=== PATIENT | female | born 1960 | race Caucasian/White ===

== ENCOUNTER 2017-01-07 13:16 | Emergency (ER) | payer MEDICARE, MEDICAID ==
[~2017-01-07] VITALS: Ht 165.1 cm; Wt 67.0 kg
[~2017-01-07 13:16] MED LIST: ALLOPURINOL300 MG PO; ASPIRIN 81 LOW81 MG PO; CARVEDILOL6.25 MG PO; COREG6.25 MG PO; FLEXERIL5 MG PO; IBUPROFEN600 MG PO; KLOR-CON M1010 MEQ PO; LASIX 40 MG40 MG/TAB PO; LASIX 80 MG TAB80 M1 PO; LASIX40 MG PO; LISINOPRIL10 MG PO; LISINOPRIL5 MG PO; METRONIDAZOL500 MG PO; PREDNISONE20 MG PO; SPIRONOLACTONE25 MG PO; ULTRAM50 M1 PO; VENTOLIN HFA IN
[2017-01-07 13:49] LABS: HEMATOCRIT 38.5 % (37.0-47.0); HEMOGLOBIN 12.2 g/dl (12.0-16.0); IMMATURE GRANULOCYTES 0.3 % (0.0-1.0); MEAN CELL VOLUME 63.5 fL CALC (80.0-100.0); MEAN CORPUSCULAR HGB 20.1 pG CALC (26.0-32.0); MEAN CORPUSCULAR HGB CONC 31.7 g/L CALC (32.0-36.0); NEUT# 15.54 thou/uL (2.00-7.15); RED BLOOD COUNT 6.06 mill/uL (4.20-5.60); RED CELL DISTRI WIDTH 15.3 % (11.5-15.5)
[2017-01-07 14:12] LABS: ALBUMIN 4.6 g/dL (3.2-5.0); ALKALINE PHOSPHATASE 91 u/l (38-126); ANION GAP 19 (6-22 (CALC)); BUN 22 mg/dL (7-17); BUN/CREATININE RATIO 24 (12-20 (CALC)); CALCIUM 9.5 mg/dL (8.4-10.2); CARBON DIOXIDE 27 mmol/l (22-30); CHLORIDE 98 mmol/l (95-108); CREATININE 0.9 mg/dL (0.5-1.0); GFR > 60 ML/MIN (>=60 (CALC)); GFR FOR AFR.AMER. > 60 ML/MIN (>=60 (CALC)); GLUCOSE 147 mg/dL (65-105); POTASSIUM 2.8 mmol/l (3.5-5.1); SGOT/AST 45 u/l (14-36); SGPT/ALT 36 u/l (9-52); SODIUM 141 mmol/l (137-146); TOTAL PROTEIN 8.8 g/dL (6.3-8.2)
[2017-01-07 14:23] LABS: MYOGLOBIN 76 ng/mL (0 - 62)
[2017-01-07 14:58] LABS: URINE BILIRUBIN - DIPSTICK NEGATIVE (NEGATIVE); URINE BLOOD DIPSTICK NEGATIVE (NEGATIVE); URINE CLARITY CLEAR; URINE COLOR YELLOW; URINE GLUCOSE - DIPSTICK NEGATIVE (NEGATIVE); URINE KETONE NEGATIVE (NEGATIVE); URINE LEUK ESTERASE NEGATIVE (NEGATIVE); URINE NITRITE - DIPSTICK NEGATIVE (Negative); URINE PH 5.5 (4.5-8.0); URINE PROTEIN - DIPSTICK NEGATIVE (NEG-TRACE); URINE SPECIFIC GRAVITY 1.025; URINE UROBILINOGEN - DIPSTICK 0.2 E.U./dL (0.2)
[2017-01-07 15:02] LABS: COCAINE NEGATIVE (NEGATIVE)
[2017-01-07 15:03] LABS: BARBITURATES NEGATIVE (NEGATIVE); METHADONE NEGATIVE (NEGATIVE); OXCYCODONE NEGATIVE (NEGATIVE); TETRAHYDROCANNABIONOL NEGATIVE (NEGATIVE); TRICYLIC ANTIDEPRESSANTS NEGATIVE (NEGATIVE)
[2017-01-07 17:53] LABS: MYOGLOBIN 69 ng/mL (0 - 62)
[2017-01-07 18:16] VITALS: BP 108/63
== END 2017-01-07 18:41 | disposition home or self-care (01) ==
LOC: ED 13:16
PROVIDERS: Emergency Medicine
DX: R07.89 Other chest pain (principal); E87.6 Hypokalemia; T43.621A Poisoning by amphetamines, accidental (unintentional), initial encounter; Y92.89 Other specified places as the place of occurrence of the external cause

== ENCOUNTER 2017-07-15 13:12 | Emergency (ER) | payer MEDICARE, MEDICAID ==
[~2017-07-15] VITALS: Ht 165.1 cm; Wt 65.2 kg
[2017-07-15 15:26] LABS: INFLUENZA A NONE DETECTED (NONE DETECT); INFLUENZA B NONE DETECTED (NONE DETECT)
[2017-07-15 18:30] LABS: ALBUMIN 4.4 g/dL (3.2-5.0); BILIRUBIN, TOTAL 2.9 mg/dL (0.0-1.4); CALCIUM 9.5 mg/dL (8.4-10.2); CREATININE 1.3 mg/dL (0.5-1.0); POTASSIUM 3.4 mmol/l (3.5-5.1); TOTAL PROTEIN 7.5 g/dL (6.3-8.2)
[2017-07-15 18:37] LABS: HEMATOCRIT 35.3 % (37.0-47.0); IMMATURE GRANULOCYTES 0.3 % (0.0-1.0); MEAN CORPUSCULAR HGB 20.9 pG CALC (26.0-32.0); MEAN CORPUSCULAR HGB CONC 31.2 g/L CALC (32.0-36.0); NEUT# 6.42 thou/uL (2.00-7.15); RED BLOOD COUNT 5.27 mill/uL (4.20-5.60); RED CELL DISTRI WIDTH 18.6 % (11.5-15.5)
[2017-07-15] MEDS ORDERED: SPIRONO/HCTZ PO (20:58)
[2017-07-15] MEDS ORDERED: LASIX 40 MG TAB40 MG PO (20:58)
[2017-07-15 21:08] VITALS: BP 122/73
== END 2017-07-15 21:08 | disposition home or self-care (01) ==
LOC: ED 13:12
PROVIDERS: Emergency Medicine; Family Medicine
DX: I11.0 Hypertensive heart disease with heart failure (principal); I50.9 Heart failure, unspecified; I42.9 Cardiomyopathy, unspecified; Z95.810 Presence of automatic (implantable) cardiac defibrillator; R06.02 Shortness of breath

== ENCOUNTER 2017-07-16 22:50 | Inpatient (IN) | payer MEDICARE, MEDICAID ==
[~2017-07-16] VITALS: Ht 165.1 cm; Wt 63.8 kg
[~2017-07-16 22:50] MED LIST changes: +LASIX 40 MG TAB40 MG PO; +SPIRONO/HCTZ PO
--- NOTE | 2017-07-16 23:10 | NUR ---
PT TO RM 13 VIA WHEELCHAIR.
--- NOTE | 2017-07-16 23:12 | NUR ---
A/O F WHO RETURNS TO ER C/O SOB AND FLUID RETENTION.SHE DENIES CP HAS BEEN VOIDING AND TAKING MEDICATIONS ORDERED.W/P/D SKIN CLEAR BILAT BREATH SOUNDS,OCC DRY SUBSCRIPTION AGENT COUGH.NO DEPENDENT EDEMA
[2017-07-17 00:06] LABS: HEMATOCRIT 36.5 % (37.0-47.0); HEMOGLOBIN 11.5 g/dl (12.0-16.0); IMMATURE GRANULOCYTES 0.5 % (0.0-1.0); MEAN CELL VOLUME 66.8 fL CALC (80.0-100.0); MEAN CORPUSCULAR HGB 21.1 pG CALC (26.0-32.0); MEAN CORPUSCULAR HGB CONC 31.5 g/L CALC (32.0-36.0); NEUT# 6.17 thou/uL (2.00-7.15); RED BLOOD COUNT 5.46 mill/uL (4.20-5.60); RED CELL DISTRI WIDTH 18.6 % (11.5-15.5)
[2017-07-17 00:16] LABS: ALBUMIN 4.7 g/dL (3.2-5.0); ALKALINE PHOSPHATASE 91 u/l (38-126); ANION GAP 23 (6-22 (CALC)); BILIRUBIN, TOTAL 3.5 mg/dL (0.0-1.4); BUN 23 mg/dL (7-17); BUN/CREATININE RATIO 21 (12-20 (CALC)); CALCIUM 9.6 mg/dL (8.4-10.2); CARBON DIOXIDE 24 mmol/l (22-30); CHLORIDE 99 mmol/l (95-108); CREATININE 1.1 mg/dL (0.5-1.0); GFR 51 ML/MIN (>=60 (CALC)); GFR FOR AFR.AMER. > 60 ML/MIN (>=60 (CALC)); GLUCOSE 178 mg/dL (65-105); POTASSIUM 2.9 mmol/l (3.5-5.1); SGOT/AST 45 u/l (14-36); SGPT/ALT 45 u/l (9-52); SODIUM 142 mmol/l (137-146); TOTAL PROTEIN 7.8 g/dL (6.3-8.2)
[2017-07-17 00:17] LABS: INTERNATIONAL NORMALIZED RATIO 1.1 RATIO (0.7-1.3); PROTHROMBIN TIME 12.3 SECONDS (9.0-12.5)
[2017-07-17 00:28] LABS: MYOGLOBIN 114 ng/mL (0 - 62)
--- NOTE | 2017-07-17 00:40 | NUR ---
PT UP TO BSC TO VOID 200 CC YELLOW URINE SPEC TO LAB
[2017-07-17 00:58] LABS: URINE BILIRUBIN - DIPSTICK NEGATIVE (NEGATIVE); URINE BLOOD DIPSTICK NEGATIVE (NEGATIVE); URINE COLOR YELLOW; URINE GLUCOSE - DIPSTICK NEGATIVE (NEGATIVE); URINE KETONE NEGATIVE (NEGATIVE); URINE LEUK ESTERASE NEGATIVE (NEGATIVE); URINE NITRITE - DIPSTICK NEGATIVE (Negative); URINE PH 6.5 (4.5-8.0); URINE PROTEIN - DIPSTICK NEGATIVE (NEG-TRACE); URINE UROBILINOGEN - DIPSTICK 0.2 E.U./dL (0.2)
[2017-07-17 01:06] LABS: URINE CLARITY CLEAR
--- NOTE | 2017-07-17 02:36 | NUR ---
PT IS FEELING BETTER NOW SHE SAYS
--- NOTE | 2017-07-17 03:26 | NUR ---
PHONE REPORT TO CAPRICE CONNELL
--- NOTE | 2017-07-17 03:31 | NUR ---
TO FLOOR IN IMPROVED STABLE CONDITION ON TELE
--- NOTE | 2017-07-17 03:36 | NUR ---
PATIENT ARRIVED TO THE FLOOR IN STABLE CONDITION VIA STRETCHER AND ACCOMPANIED BY ED STAFF. PATIENT SETTLED TO BED. ORIENT PATIENT TO ROOM CALL SYSTEM. DENIES PAIN. PT STATED "I AM FEELING MUCH BETTER SINCE THEY GAVE ME THE LASIX DOWNSTAIRS" BED IN LOW POSITION AND CALL LIGHT IN REACH.
--- NOTE | 2017-07-17 07:00 | NUR ---
RECEIVED BEDSIDE REPORT FROM CAPRICE CONNELL. RETURNED FROM RADIOLOGY VIA WHEELCHAIR. AMBULATED TO BED WITH STEADY GAIT. RESPS EVEN AND UNLABORED ON ROOM AIR, TELE MONITOR IN PLACE. DENIES PAIN OR DISCOMFORT. CALL LIGHT WITHIN REACH. PLAN OF CARE DISCUSSED. SAFETY PRECAUTIONS REINFORCED. BED IN LOWEST POSITION WITH WHEELS LOCKED. ENCOURAGED PT TO CALL FOR ANY NEEDS.
[2017-07-17 07:33] VITALS: BP 114/78
[2017-07-17 08:03] LABS: CHOLESTEROL HDL RATIO 3.8 (<4.4 (CALC))
--- NOTE | 2017-07-17 08:58 | NUR ---
DR KHAN IN WITH PT, NEW ORDERS RECEIVED.
[2017-07-17 11:16] VITALS: BP 100/71
[2017-07-17 15:11] VITALS: BP 92/51
--- NOTE | 2017-07-17 16:34 | NUR ---
RESTING IN LEFT FOWLERS WITH EYES CLOSED, AWAKENS EASILY. RESPS EVEN AND UNLABORED ON ROOM AIR, TELE MONITOR IN PLACE. DENIES PAIN OR DISCOMFORT. CALL LIGHT WITHIN REACH. WILL CONTINUE TO MONITOR.
--- NOTE | 2017-07-17 19:00 | NUR ---
RECEIVED CHANGE OF SHIFT REPORT FROM KO IBRAHIM. PATIENT SITTING UP IN BED AND APPEARS NOT TO BE IN ANY APPARENT ACUTE DISTRESS. C/O STILL BEING A LITTLE SOB. LUNG SOUNDS CLEAR IN ALL MEYER, O2 SAT 99% ON RA.
[2017-07-17 19:20] VITALS: BP 96/66
[2017-07-17 23:05] VITALS: BP 103/76
--- NOTE | 2017-07-18 01:20 | NUR ---
PATIENT UP AT BEDSIDE MAKING HER BED. C/O BEING DIZZY. ENCOURAGED PATIENT TO REMAIN IN BED AND CALL FOR ASSISTANCE. PATIENT STATES SHE IS ANXIOUS ABOUT HER SON IN THE [employer]. PT BP IS 102/76 IN LEFT ARM SUPINE POSITION.
--- NOTE | 2017-07-18 04:00 | NUR ---
NO APPARENT ACUTE CHANGES NOTED IN PATIENT'S CONDITION.
[2017-07-18 04:22] VITALS: BP 92/71
[2017-07-18 06:07] LABS: HEMATOCRIT 37.2 % (37.0-47.0); HEMOGLOBIN 11.7 g/dl (12.0-16.0); IMMATURE GRANULOCYTES 0.6 % (0.0-1.0); MEAN CELL VOLUME 66.9 fL CALC (80.0-100.0); MEAN CORPUSCULAR HGB CONC 31.5 g/L CALC (32.0-36.0); NEUT# 4.84 thou/uL (2.00-7.15); RED BLOOD COUNT 5.56 mill/uL (4.20-5.60); RED CELL DISTRI WIDTH 18.7 % (11.5-15.5)
[2017-07-18 06:22] LABS: ALBUMIN 4.4 g/dL (3.2-5.0); CALCIUM 9.5 mg/dL (8.4-10.2); CREATININE 1.3 mg/dL (0.5-1.0); POTASSIUM 3.8 mmol/l (3.5-5.1); TOTAL PROTEIN 7.4 g/dL (6.3-8.2)
--- NOTE | 2017-07-18 07:00 | NUR ---
REPORT RECIEVED FROM KO VASQUES. PT ASLEEP ON ENTRY, NO SIGNS OF DISTRESS NOTED. RESP EVEN AND UNLABORED. SAFETY PRECAUTIONS IN PLACE. CALL LIGHT WITHIN REACH. WILL CONTINUE TO MONITOR.
[2017-07-18 08:28] VITALS: BP 94/62
--- NOTE | 2017-07-18 08:35 | NUR ---
IN ROOM. PLAN OF CARE UPDATED. DR KHAN WANTS PT ON O2 2LNC. PT IS TO BE WALKED WITH WALKER. WILL CONTINUE TO MONITOR PT FOR ANY SHORTNESS OF BREATH AND O2 SAT.
[2017-07-18 11:18] VITALS: BP 117/79
[2017-07-18 15:18] VITALS: BP 110/81
--- NOTE | 2017-07-18 16:36 | NUR ---
PT APPEARS TO BE SLEEPING. NO SIGN OF DISTRESS NOTED. RESP EVEN AND UNLABORED. TELE IN PLACE. BED IN LOWEST POSITION. WILL CONTINUE TO MONITOR. CALL LIGHT WITHIN REACH.
--- NOTE | 2017-07-18 17:45 | NUR ---
DR. KHAN IN ROOM. UPDATED PLAN OF CARE. PT HAS A EJECTION FRACTION OF 19%. A NEW PACEMAKER WAS DISCUSSED WITH PT.
[2017-07-18 18:30] VITALS: BP 132/84
--- NOTE | 2017-07-18 20:00 | NUR ---
PATIENT AWAKE ALERT AND ORIENTEDX3 AT THIS TIME. PATIENT IS ANXIOUS REGUARDING DISCUSSION WITH DR. ERIN HUGHES AND THE RESULTS OF HER ECHO AND EJ RESULTS. REASSURANCE GIVEN AND PATIENT MEDICATED WITH XANAX 0.5MG FOR ANXIETY. PATIENT WITH HEP LOCK TO RIGHT FOREARM IS LEAKING AND SITE WAS DC'ED WITH CATH INTACT. NEW IV SITE STARTED TO LEFT FOREARM WITH #24 WITH GOOD BLOOD RETURN. SAFETY PRECAUTIONS REVIEWED WITH PATIENT. CALL LIGHT IN REACH. WILL CONT TO MONITOR.
[2017-07-18 23:45] VITALS: BP 108/81
--- NOTE | 2017-07-19 | NUR ---
PATIENT SITTING UP IN THE CHAIR WITH O2 OFF-STATES THAT SHE IS HAVING PANIC ATTACK. REASSURANCE GIVEN AND O2 REAPPLIED. ASSISTED PATIENT BACK TO BED-STATES THAT SHE WAS HAVING NIGHTMARE WHEN SHE WOKE UP AND WAS DISORIENTED. TOO EARLY FOR XANAX. MEDICATED WITH RESTORIL 15MG PO ORDERED FOR SLEEP. CALL LIGHT IN REACH. WILL CONT TO MONITOR.
[2017-07-19 03:15] VITALS: BP 100/79
[2017-07-19 05:24] LABS: HEMATOCRIT 38.5 % (37.0-47.0); IMMATURE GRANULOCYTES 0.5 % (0.0-1.0); MEAN CELL VOLUME 67.7 fL CALC (80.0-100.0); MEAN CORPUSCULAR HGB 21.1 pG CALC (26.0-32.0); MEAN CORPUSCULAR HGB CONC 31.2 g/L CALC (32.0-36.0); NEUT# 6.56 thou/uL (2.00-7.15); RED BLOOD COUNT 5.69 mill/uL (4.20-5.60)
[2017-07-19 05:38] LABS: ANION GAP 18 (6-22 (CALC)); BUN 31 mg/dL (7-17); BUN/CREATININE RATIO 30 (12-20 (CALC)); CALCIUM 9.6 mg/dL (8.4-10.2); CARBON DIOXIDE 26 mmol/l (22-30); CHLORIDE 101 mmol/l (95-108); GFR 57 ML/MIN (>=60 (CALC)); GFR FOR AFR.AMER. > 60 ML/MIN (>=60 (CALC)); GLUCOSE 140 mg/dL (65-105); POTASSIUM 4.5 mmol/l (3.5-5.1); SODIUM 141 mmol/l (137-146)
--- NOTE | 2017-07-19 05:59 | NUR ---
PATIENT SITTING UP IN THE BED AT THIS TIME EXTREMELY ANXIOUS-STATES THAT SHE DOESN'T KNOW WHAT IS WRONG WITH HER-MAYBE I NEED TO GO TO PSYCH FACILITY. REASSURANCE GIVEN AND PATIENT ALLOWED TO VENT. MEDICATED WITH XANAX 0.5MG PO FOR ANXIETY. CALL LIGHT IN REACH. WILL CONT TO MONITOR.
[2017-07-19 07:10] VITALS: BP 115/79
--- NOTE | 2017-07-19 07:10 | NUR ---
BEDSIDE REPORT RECEIVED FROM NIGHT NURSE, PIGSKIN TRIMMER IS JUST LEAVING ROOM, PT.IS UPRIGHT IN BED W/EYES CLOSED, NOT APPEARING TO BE AWAKE. NO S/S OF DISTRESS AT THIS TIME.
--- NOTE | 2017-07-19 08:04 | NUR ---
PT.CALLED TO ASK WHEN THE DOCTOR WOULD BE GETTING HERE TO SEE HER. I GO DOWN TO PT.'S ROOM TO TALK WITH HER AND SEE IF I CAN ASSIST HER. UPON ENTERING ROOM, SHE IS IN RECLINER, CRYING AND PROCEEDS TO TELL ME SHE IS HAVING A PANAC ATTACK AND DOESN'T KNOW WHAT TO DO. SHE WAS MEDICATED WITH XANAX @0532, SHE REPORTS THAT IT DID NOT HELP. SHE STATED THAT SHE KEEPS WAKING UP FEELING PANICKED. I TRY TO TALK PT.THROUGH IT, ENCOURAGED PACED BREATHING AND POSITIVE THINKING. PT.SEEMED TO CALM AND RELAX SOMEWHAT WHEN I'M IN THE ROOM, BUT UPON LEAVING THE ROOM SHE SCREAMS OUT AND CRIES.
[2017-07-19 08:16] VITALS: BP 115/79
[2017-07-19] MEDS ORDERED: IBUPROFEN600 MG PO (08:21)
[2017-07-19] MEDS ORDERED: LISINOPRIL10 MG PO (08:21)
[2017-07-19] MEDS ORDERED: FLEXERIL5 MG PO (08:21)
--- NOTE | 2017-07-19 08:27 | NUR ---
ENTERED ROOM TO ADMINISTER MEDICATIONS AND PT.IS SITTING ON SIDE OF BED, EXTREMELY ANXIOUS, TALKING TO SISTER ON THE PHONE BEGGING HER TO "PLEASE COME." UPON HANGING UP THE PHONE I BEGIN TO TRY AND ASSESS PT., SHE DENIES ANY PAIN OR DISCOMFORT, JUST STATES "I FEEL PANICKED." HER BREATHING IS FAST PACED, I INSTRUCT PT.TO SLOW HER BREATHING SHE STATES, "I CAN'T." I CONTINUE TO WORK WITH PT. WITH DEEP SLOW BREATHING. PT.IS UP WALKING AROUND THE ROOM, PT.REFUSES TO PUT SOCKS ON FOR SAFETY MEASURES.
--- NOTE | 2017-07-19 10:20 | NUR ---
ENTERED ROOM, ARRIVED AND IS AT BEDSIDE. PT.APPEARED CALM AT THIS TIME. NO S/S OF ANXIETY OR DISTRESS. REVIEWED DISCHARGE INSTRUCTIONS WITH PT. AND AND ASSISTED THEM IN GATHERING PERSONAL ITEMS.
--- NOTE | 2017-07-19 10:34 | NUR ---
PT.DISCHARGED OFF THE UNIT FLOOR IN GOOD CONDITION VIA WC ACCOMPANIED BY . NO SIGNS OF ANXIETY OR PAIN UPON DISCHARGE.
== END 2017-07-19 10:25 | disposition home or self-care (01) | DRG 293 ==
LOC: ED 22:50 → ED-I 07-17 02:40 → ED 07-17 03:16 → MS2 07-17 03:17
PROVIDERS: Emergency Medicine; ADMIT Internal Medicine Geriatric Medicine; ATTEND Internal Medicine Geriatric Medicine
DX: I11.0 Hypertensive heart disease with heart failure (principal); I42.8 Other cardiomyopathies; I50.23 Acute on chronic systolic (congestive) heart failure; I50.84 End stage heart failure; I48.91 Unspecified atrial fibrillation; F41.9 Anxiety disorder, unspecified; R53.81 Other malaise; M16.11 Unilateral primary osteoarthritis, right hip; Z95.810 Presence of automatic (implantable) cardiac defibrillator

== ENCOUNTER 2017-08-06 19:37 | Inpatient (IN) | payer MEDICARE, MEDICAID ==
[~2017-08-06] VITALS: Ht 154.9 cm; Wt 63.2 kg
[2017-08-06 20:04] LABS: HEMATOCRIT 40.2 % (37.0-47.0); HEMOGLOBIN 12.5 g/dl (12.0-16.0); IMMATURE GRANULOCYTES 0.3 % (0.0-1.0); MEAN CELL VOLUME 67.6 fL CALC (80.0-100.0); MEAN CORPUSCULAR HGB CONC 31.1 g/L CALC (32.0-36.0); NEUT# 6.59 thou/uL (2.00-7.15); RED BLOOD COUNT 5.95 mill/uL (4.20-5.60); RED CELL DISTRI WIDTH 18.1 % (11.5-15.5)
[2017-08-06 20:14] LABS: ALBUMIN 4.8 g/dL (3.2-5.0); BILIRUBIN, TOTAL 2.3 mg/dL (0.0-1.4); CALCIUM 9.8 mg/dL (8.4-10.2); CREATININE 1.2 mg/dL (0.5-1.0); POTASSIUM 4.7 mmol/l (3.5-5.1); TOTAL PROTEIN 8.1 g/dL (6.3-8.2)
[2017-08-06 21:49] LABS: URINE BILIRUBIN - DIPSTICK NEGATIVE (NEGATIVE); URINE BLOOD DIPSTICK NEGATIVE (NEGATIVE); URINE COLOR YELLOW; URINE GLUCOSE - DIPSTICK NEGATIVE (NEGATIVE); URINE KETONE NEGATIVE (NEGATIVE); URINE LEUK ESTERASE NEGATIVE (NEGATIVE); URINE NITRITE - DIPSTICK NEGATIVE (Negative); URINE PROTEIN - DIPSTICK NEGATIVE (NEG-TRACE); URINE SPECIFIC GRAVITY 1.025; URINE UROBILINOGEN - DIPSTICK 0.2 E.U./dL (0.2)
[2017-08-06 21:51] LABS: URINE CLARITY CLEAR
[2017-08-06 23:01] VITALS: BP 97/72
[2017-08-07 05:55] VITALS: BP 120/74
[2017-08-07 06:24] LABS: HEMATOCRIT 37.6 % (37.0-47.0); HEMOGLOBIN 11.5 g/dl (12.0-16.0); IMMATURE GRANULOCYTES 0.3 % (0.0-1.0); MEAN CELL VOLUME 67.7 fL CALC (80.0-100.0); MEAN CORPUSCULAR HGB 20.7 pG CALC (26.0-32.0); MEAN CORPUSCULAR HGB CONC 30.6 g/L CALC (32.0-36.0); NEUT# 5.59 thou/uL (2.00-7.15); RED BLOOD COUNT 5.55 mill/uL (4.20-5.60); RED CELL DISTRI WIDTH 17.2 % (11.5-15.5)
[2017-08-07 06:37] LABS: ALKALINE PHOSPHATASE 69 u/l (38-126); ANION GAP 18 (6-22 (CALC)); BILIRUBIN, TOTAL 2.1 mg/dL (0.0-1.4); BUN 25 mg/dL (7-17); BUN/CREATININE RATIO 23 (12-20 (CALC)); CALCIUM 9.4 mg/dL (8.4-10.2); CALCULATED LDLCHOLESTEROL 55 mg/dL (62-129 (CALC)); CARBON DIOXIDE 27 mmol/l (22-30); CHLORIDE 102 mmol/l (95-108); CHOLESTEROL HDL RATIO 4.5 (<4.4 (CALC)); CREATININE 1.1 mg/dL (0.5-1.0); GFR 51 ML/MIN (>=60 (CALC)); GFR FOR AFR.AMER. > 60 ML/MIN (>=60 (CALC)); GLUCOSE 107 mg/dL (65-105); HDL CHOLESTEROL 21 mg/dL (>=40); POTASSIUM 3.7 mmol/l (3.5-5.1); SGOT/AST 54 u/l (14-36); SGPT/ALT 68 u/l (9-52); SODIUM 143 mmol/l (137-146); TOTAL CHOLESTEROL 93 mg/dl (0-199); TOTAL PROTEIN 6.8 g/dL (6.3-8.2); TOTAL TRIGLYCERIDES 86 mg/dl (30-149); VLDL CHOLESTROL 17 mg/dl (2-49 (CALC))
[2017-08-07 08:00] VITALS: BP 96/70
[2017-08-07 12:00] VITALS: BP 86/72
[2017-08-07 19:30] VITALS: BP 102/73
== END 2017-08-07 21:35 | disposition short-term general hospital (02) | DRG 315 ==
LOC: ED 19:37 → ED-I 21:15 → ED 21:54 → ICU 21:55 → MS2 08-07 18:10
PROVIDERS: Emergency Medicine; ADMIT Internal Medicine Geriatric Medicine; ATTEND Internal Medicine Geriatric Medicine
DX: I42.9 Cardiomyopathy, unspecified (principal); I50.22 Chronic systolic (congestive) heart failure; I11.0 Hypertensive heart disease with heart failure; I48.91 Unspecified atrial fibrillation; M16.11 Unilateral primary osteoarthritis, right hip; Z95.810 Presence of automatic (implantable) cardiac defibrillator; Z91.19 Patient's noncompliance with other medical treatment and regimen

== ENCOUNTER 2017-09-28 02:34 | Emergency (ER) | payer MEDICARE ==
[~2017-09-28] VITALS: Ht 154.9 cm; Wt 63.6 kg
[2017-09-28 02:57] LABS: IMMATURE GRANULOCYTES 1.1 % (0.0-1.0); MEAN CELL VOLUME 70.1 fL CALC (80.0-100.0); MEAN CORPUSCULAR HGB CONC 31.4 g/L CALC (32.0-36.0); NEUT# 10.24 thou/uL (2.00-7.15); RED BLOOD COUNT 4.99 mill/uL (4.20-5.60); RED CELL DISTRI WIDTH 23.2 % (11.5-15.5)
[2017-09-28 03:20] LABS: ALBUMIN 4.4 g/dL (3.2-5.0); BILIRUBIN, TOTAL 4.5 mg/dL (0.0-1.4); CREATININE 1.4 mg/dL (0.5-1.0); POTASSIUM 3.7 mmol/l (3.5-5.1); TOTAL PROTEIN 7.7 g/dL (6.3-8.2)
[2017-09-28 07:02] VITALS: BP 83/59
== END 2017-09-28 07:03 | disposition short-term general hospital (02) ==
LOC: ED 02:34
PROVIDERS: Emergency Medicine
DX: I50.9 Heart failure, unspecified (principal); K80.20 Calculus of gallbladder without cholecystitis without obstruction; R74.8 Abnormal levels of other serum enzymes; R11.0 Nausea; R00.0 Tachycardia, unspecified; K44.9 Diaphragmatic hernia without obstruction or gangrene
CPT/HCPCS: J2060